=== PATIENT | female | born 1975 | race Caucasian/White ===

== ENCOUNTER 2024-04-15 17:19 | Emergency (ER) | payer BC, SELFPAY ==
--- NOTE | ~2024-04-15 | XR_ITS ---
EXAMINATION: XR chest 2V DATE: 04/15/2024 17:40 INDICATION: Back pain. TECHNIQUE: Frontal and lateral views of the chest were obtained. COMPARISON: Chest 2 views 08/15/2005 FINDINGS: There is mild scarring at the lung apices. No pneumonia, pleural effusion, or pneumothorax. The heart size is normal. IMPRESSION: 1. Stable mild scarring at the lung apices. Reviewed, dictated and finalized at location E.
--- NOTE | 2024-04-15 17:20 | ECG_ITS ---
Test Date: 2024-04-15 17:26:21 Measurements Intervals [place] Rate: 80 P: 63 TN: 154 QRS: 64 QRSD: 86 T: 54 QT: 369 QTc: 427 Interpretive Statements SINUS RHYTHM BORDERLINE ST ABNORMALITY- INFERIOR LEADS BASELINE ARTIFACT- V4-V5 BORDERLINE ECG No previous ECG available for comparison Electronically Signed On 04-15-2024 18:36:06 CDT by Kevin Short D.O.
[2024-04-15 17:30] VITALS: BP 163/88; PULSE 78; RESP 20; TEMP 36.7; O2SAT 100
[2024-04-15 17:53] LABS: Basophils Absolute Auto 0.1 K/mm3 (0.0-0.1); Basophils Percent Auto 0.8 % (0.2-1.2); Eosinophils Absolute Auto 0.3 K/mm3 (0-0.3); Eosinophils Percent Auto 2.8 % (0-4.4); Hematocrit 39.1 % (37.0-47.0); Immature Granulocyte Absolute 0.02 K/mm3 (0.00-0.031); Immature Granulocyte Percent A 0.2 % (0-0.5); Lymphocytes Absolute Auto 3.38 K/mm3 (0.9-3.2); Lymphocytes Percent Auto 36.5 % (18.3-44.2); Mean Corpuscular HGB Conc 33.2 g/dl (32-36); Mean Corpuscular Hemoglobin 31.6 pg (26-34); Mean Corpuscular Volume 95.1 fl (80-100); Mean Platelet Volume 10.9 fl (7.4-10.4); Monocytes Absolute Auto 0.5 K/mm3 (0.1-0.6); Monocytes Percent Auto 5.5 % (2.6-8.5); Neutrophils Percent Auto 54.2 % (45.5-73.1); Platelet Count Result 289 k/mm3 (150-375); Red Blood Count 4.11 M/mm3 (4.2-5.4); Red Cell Distribution Width 12.8 % (11.5-14.5); White Blood Count 9.3 K/mm3 (4.5-10.0)
[2024-04-15 18:03] LABS: Alanine Aminotransferase 42 U/L (6-35); Albumin Level 4.9 g/dL (3.5-5.1); Alkaline Phosphatase 104 U/L (38-126); Anion Gap 12 mmol/L (4-12); Aspartate Amino Transferase 43 U/L (14-36); Bilirubin,Total 0.6 mg/dL (0.2-1.3); Blood Urea Nitrogen 10 mg/dL (7-17); Calcium 9.5 mg/dL (8.4-10.2); Carbon Dioxide 26 mmol/L (22-30); Chloride 103 mmol/L (98-107); Estimated CRCL calculation 109 ml/min; Estimated Glomerular Filt Rate > 60; Glucose 102 mg/dL (65-110); Lipase 142 U/L (23-300); Potassium 3.7 mmol/L (3.4-5.0); Sodium 141 mmol/L (137-145)
[2024-04-15 18:08] LABS: INR 0.9; Prothrombin Time 12.1 Seconds (11.1-14.7)
[2024-04-15 18:09] LABS: Partial Thromboplastin Time 23.2 Seconds (22.3-36.8)
[2024-04-15 18:14] LABS: Troponin I < 0.012 ng/mL (0.000-0.034)
--- NOTE | 2024-04-15 20:15 | ED.CHESTPAIN ---
HPI - Chest Pain General Chief Complaint: Chest Pain Stated Complaint: chest pain Time Seen by Provider: 04/15/24 19:56 History of Present Illness HPI narrative: 48-year-old female with a history of hypothyroidism presenting with chest pain. States that she was at work sitting at her desk when she developed sudden right-sided chest pain that she describes as severe and sharp. States that it felt like a fire poker was jabbed into her chest. States that she has had a bit of a headache but denies other associated symptoms. No shortness of breath, lightheadedness, leg swelling. States that the pain has improved and now feels like a dull ache on the right side of her chest. She had COVID approximately 2 weeks ago and states that she has been healing well from this. Denies fevers, cough, vomiting. No numbness or weakness. Related Data Allergies Allergy/AdvReac Type Severity Reaction Status Date / Time No Known Allergies Allergy Unknown Unverified 03/12/08 18:15 NA Allergy Unknown Uncoded 01/20/09 10:40 Review of Systems Review of Systems: All systems reviewed & are unremarkable except as noted in HPI and below PMFSH Family History Family History Grandparent Cerebrovascular accident Diabetes mellitus Mother Family history of malignant neoplasm of cervix Social History Social History Smoking status: Never smoker Alcohol intake: never Exam Narrative: GENERAL: Well-appearing, well-nourished, and in no acute distress. HEAD: Normocephalic, atraumatic. EYES: PERRLA and EOMI. ENT: Mucous membranes moist. NECK: Supple. CHEST: Clear to auscultation. No respiratory distress. HEART: Regular rate and rhythm. Normal peripheral pulses. ABDOMEN: Soft, nontender, nondistended EXTREMITIES: Normal range of motion. No edema. SKIN: Warm, dry, no rash. NEURO: No focal deficits. Alert and oriented x3. PSYCH: Normal mood and affect. Course Vital Signs Vital signs: Vital Signs Temperature 98.0 F 04/15/24 17:30 Pulse Rate 78 04/15/24 17:30 Respiratory Rate 20 04/15/24 17:30 Blood Pressure 163/88 H 04/15/24 17:30 Pulse Oximetry 100 04/15/24 17:30 Oxygen Delivery Room Air 04/15/24 17:30 Temperature 98.0 F 04/15/24 17:30 Pulse Rate 70 04/15/24 22:10 Respiratory Rate 20 04/15/24 22:10 Blood Pressure 166/89 H 04/15/24 22:10 Pulse Oximetry 97 04/15/24 22:10 Oxygen Delivery Room Air 04/15/24 17:30 MDM - Chest Pain MDM Narrative Medical decision making narrative: 48-year-old female presenting with right-sided chest pain. Patient hypertensive on arrival, otherwise vitals are within normal limits. Exam remarkable for the above. EKG per my interpretation shows normal sinus rhythm, no ST elevations or depressions. Blood work is unremarkable. Coags are normal. Lipase is normal. Troponin undetectable. Chest x-ray without acute abnormalities. 3 hour EKG is unchanged from prior. 3 hour troponin remains undetectable. D-dimer is undetectable. On re-evaluation, the patient states that the pain has improved even more and is only slightly there. Denies any further symptoms. Discussed the reassuring workup with the patient and advised close PCP follow-up. Appropriate return precautions given. Patient is agreeable this plan. Discharged in stable condition. Differential Diagnosis Differential diagnosis: Likely fracture of rib, pneumothorax, stable angina, atypical chest pain, st elevation myocardial infarction, costochondritis and chest pain Medical Records Data Attestation: I reviewed the patient's medical records. Lab Data Attestation: I reviewed the patient's lab results. 04/15/24 17:46 04/15/24 17:46 Labs: Lab Results 04/15/24 04/15/24 Range/Units 17:46 20:48 WBC 9.3 (4.5-10.0) K/mm3 RBC 4.11 L (4.2-5.4) M/mm3
--- NOTE | 2024-04-15 20:24 | ECG_ITS ---
Test Date: 2024-04-15 20:28:53 Measurements Intervals [place] Rate: 69 P: 33 AL: 150 QRS: 66 QRSD: 86 T: 55 QT: 394 QTc: 423 Interpretive Statements SINUS RHYTHM NORMAL ECG Compared to ECG 04/15/2024 17:26:21 No significant changes Electronically Signed On 04-16-2024 06:01:03 CDT by Kevin Short D.O.
[2024-04-15 21:15] LABS: D Dimer < 0.27 ug/mL (<0.48)
[2024-04-15 21:20] LABS: Troponin I < 0.012 ng/mL (0.000-0.034)
[2024-04-15 22:10] VITALS: BP 166/89; PULSE 70; RESP 20; O2SAT 97
== END 2024-04-15 22:14 | disposition home or self-care (01) ==
PROVIDERS: Preventive Medicine Aerospace Medicine; Emergency Provider Emergency Medicine
DX: R07.89 Other chest pain (principal); E03.9 Hypothyroidism, unspecified; Z86.16 Personal history of COVID-19; R94.31 Abnormal electrocardiogram [ECG] [EKG]
CPT/HCPCS: 36415; 71046; 80053; 83690; 84484; 85025; 85380; 85610; 85730; 93005; 99284